=== PATIENT | female | born 1955 | race Caucasian/White ===

== ENCOUNTER 2017-01-07 14:17 | Emergency (ER) | payer OTHER ==
[~2017-01-07] VITALS: Ht 160 cm; Wt 84.9 kg
[~2017-01-07 14:17] MED LIST: AMBIEN10 MG PO; Ambien PO; Augmentin PO; CYMBALTA60 MG PO; Claritin,Alavart PO; DITROPAN5 MG PO; Estrace PO; FLEXERIL10 MG PO; IMITREX50 MG PO; LYRICA100 MG PO; MELOXICAM15 MG PO; Mycostatin TP; Neurontin PO; OxyCODONE PO; PriLOSEC PO; Topamax PO; ULTRAM50 MG PO; ZANTAC150 MG PO; ZOCOR80 M1 PO
[2017-01-07 15:06] LABS: ADD MIUA? YES; BILIRUBIN NEGATIVE; BLOOD SMALL; COLOR YELLOW ((YELLOW)); GLUCOSE (STRIP) NEGATIVE; KETONES NEGATIVE; LEUKOCYTES NEGATIVE; NITRITE NEGATIVE; PROTEIN (STRIP) NEGATIVE; SPECIFIC GRAVITY 1.015 (1.000-1.030); UROBILINOGEN 0.2 MG/DL (0.2-1.0)
[2017-01-07 15:08] LABS: HEMATOCRIT 45.7 % (36.0-46.0); MCH 29.3 PG (29.0-34.0); MCV 88.7 FL (83-99); MEAN PLAT.VOLUME 9.8 uM^3 (9.5-12.4); PLATELET COUNT 228 K/uL (156-360); RBC DIS.WIDTH-CV 12.7 % (11.8-14.6); RBC DIS.WIDTH-SD 41.5 % (39-53); RED BLOOD COUNT 5.15 M/uL (3.80-5.20)
[2017-01-07 15:20] LABS: CHLORIDE 108 mEq/L (99-109)
[2017-01-07 15:21] LABS: POTASSIUM 4.4 mEq/L (3.7-5.4); SODIUM 140 mEq/L (136-147)
[2017-01-07 15:22] LABS: GLUCOSE 88 mg/dL (70-99)
[2017-01-07 15:24] LABS: ANION GAP 12 MEQ/L (2-14)
[2017-01-07 15:26] LABS: GFR ESTIMATE (CALCULATED) > 59 mL/min/
[2017-01-07 15:27] LABS: UREA NITROGEN (BUN) 17 mg/dL (9-23)
[2017-01-07 15:32] LABS: BACTERIA NONE SEEN /HPF; EPITHELIAL CELLS 1+ /HPF; MUCUS TRACE /LPF; RED BLOOD CELLS 0-5 /HPF (0-5); UCUL ADDED? NO; WHITE BLOOD CELLS 0-5 /HPF (0-5)
[2017-01-07 17:46] VITALS: BP 148/88
== END 2017-01-07 17:47 | disposition home or self-care (01) ==
LOC: EME 14:17
DX: K62.5 Hemorrhage of anus and rectum (principal); R10.9 Unspecified abdominal pain; I10 Essential (primary) hypertension; M79.7 Fibromyalgia; Z91.040 Latex allergy status; Z91.041 Radiographic dye allergy status
CPT/HCPCS: 80048; 81003; 85027; 86850; 86900; 86901; 99281; 99284